=== PATIENT | male | born 1960 | race Caucasian/White ===

== ENCOUNTER 2021-07-23 18:05 | Emergency (ER) | payer BC ==
[2021-07-23] MEDS ORDERED: Oxymetazoline HCl 0.05% (30 ML BOT) ONE (18:55)
[2021-07-23] MEDS ORDERED: Morphine 4 MG/ML VIAL ONE (20:18)
[2021-07-23] MEDS ORDERED: diphenhydrAMINE 50 MG/ML VIAL ONE (20:18)
[2021-07-23] MEDS ORDERED: Tranexamic Acid 1,000 MG/10 ML VIAL ONE ×3 (20:18→20:23)
[2021-07-23] MEDS ORDERED: diphenhydrAMINE 12.5 MG/5 ML UDCUP ONE (20:18)
[2021-07-23] MEDS ORDERED: Amoxicillin/Potassium Clav 875 MG TAB ONE (21:51)
== END 2021-07-23 22:10 | disposition home or self-care (01) ==
LOC: BURERS 18:05
DX: R04.0 Epistaxis (principal); I10 Essential (primary) hypertension; E78.5 Hyperlipidemia, unspecified
CPT/HCPCS: 30905; 96374; 96375; J1200; J2270; Q0163